=== PATIENT | male | born 1985 | race African-American/Black ===

== ENCOUNTER 2017-12-21 08:01 | Emergency (ER) | payer BC ==
[~2017-12-21] VITALS: Ht 182.9 cm; Wt 102.0 kg
[~2017-12-21 08:01] MED LIST: (None)3.5 GM OP; BACTRIM DS1 TAB PO; BYDUREON2 MG IJ; GENTAMICIN15 ML/BTL OS; METFORMIN500 M2 PO
[2017-12-21 08:49] VITALS: BP 140/86
== END 2017-12-21 08:55 | disposition home or self-care (01) | DRG 125 ==
LOC: ED 08:01
DX: H52.532 Spasm of accommodation, left eye (principal); E11.9 Type 2 diabetes mellitus without complications; Z79.84 Long term (current) use of oral hypoglycemic drugs

== ENCOUNTER 2018-07-06 02:40 | Emergency (ER) | payer BC ==
[~2018-07-06] VITALS: Ht 182.9 cm; Wt 104.0 kg
[2018-07-06] MEDS ORDERED: LANTUS100 UNIT/M (02:59)
[2018-07-06] MEDS ORDERED: KEFLEX500 MG PO (03:15)
[2018-07-06] MEDS ORDERED: PERCOCET 5/325M1 TAB PO (03:15)
[2018-07-06] MEDS ORDERED: BACTRIM DS1 TAB PO (03:15)
[2018-07-06 03:35] VITALS: BP 118/80
== END 2018-07-06 03:35 | disposition home or self-care (01) | DRG 603 ==
LOC: ED 02:40
DX: L02.211 Cutaneous abscess of abdominal wall (principal); E11.9 Type 2 diabetes mellitus without complications

== ENCOUNTER 2018-07-09 09:03 | Emergency (ER) | payer BC ==
[~2018-07-09] VITALS: Ht 182.9 cm; Wt 100.0 kg
[~2018-07-09 09:03] MED LIST changes: +KEFLEX500 MG PO; +LANTUS100 UNIT/M SC; +PERCOCET 5/325M1 TAB PO
[2018-07-09 10:24] LABS: HEMATOCRIT 40.3 % (39.0-50.0); HEMOGLOBIN 14.3 g/dl (14.0-18.0); IMMATURE GRANULOCYTES 0.9 % (0.0-5.0); MEAN CELL VOLUME 76.9 fL CALC (80.0-100.0); MEAN CORPUSCULAR HGB 27.3 pG CALC (26.0-32.0); MEAN CORPUSCULAR HGB CONC 35.5 g/L CALC (32.0-36.0); NEUT# 4.55 thou/uL (1.82-7.42); RED BLOOD COUNT 5.24 mill/uL (4.70-6.10); RED CELL DISTRI WIDTH 11.9 % (11.5-15.5)
[2018-07-09 10:49] LABS: BUN 15 mg/dL (9-20); BUN/CREATININE RATIO 17 (12-20 (CALC)); CARBON DIOXIDE 30 mmol/l (22-30); CREATININE 0.9 mg/dL (0.7-1.3); GFR > 60 ML/MIN (>=60 (CALC)); GFR FOR AFR.AMER. > 60 ML/MIN (>=60 (CALC)); POTASSIUM 4.3 mmol/l (3.5-5.1)
[2018-07-09 10:51] LABS: ANION GAP 16 (6-22 (CALC)); CHLORIDE 92 mmol/l (95-108); SODIUM 134 mmol/l (137-146)
[2018-07-09] MEDS ORDERED: CLEOCIN300 MG PO (11:33)
[2018-07-09 11:55] VITALS: BP 126/81
== END 2018-07-09 11:55 | disposition home or self-care (01) | DRG 603 ==
LOC: ED 09:03
PROVIDERS: Family Medicine
DX: L03.311 Cellulitis of abdominal wall (principal); E11.65 Type 2 diabetes mellitus with hyperglycemia; Z79.4 Long term (current) use of insulin

== ENCOUNTER 2019-08-10 18:10 | Emergency (ER) | payer SELFPAY ==
[~2019-08-10] VITALS: Ht 182.9 cm; Wt 111.2 kg
[~2019-08-10 18:10] MED LIST changes: +CLEOCIN300 MG PO
[2019-08-10] MEDS ORDERED: HUMALOG100 MG/ML (18:18)
[2019-08-10] MEDS ORDERED: TRESIBA FL100 UNIT/M (18:18)
[2019-08-10 18:59] LABS: URINE BILIRUBIN - DIPSTICK NEGATIVE (NEGATIVE); URINE BLOOD DIPSTICK NEGATIVE (NEGATIVE); URINE COLOR YELLOW; URINE GLUCOSE - DIPSTICK >=1000 mg/dL (NEGATIVE); URINE KETONE NEGATIVE (NEGATIVE); URINE LEUK ESTERASE NEGATIVE (Negative); URINE NITRITE - DIPSTICK NEGATIVE (Negative); URINE PH 5.5 (4.5-8.0); URINE PROTEIN - DIPSTICK NEGATIVE (NEG-TRACE); URINE SPECIFIC GRAVITY 1.025; URINE UROBILINOGEN - DIPSTICK 0.2 E.U./dL (0.2)
[2019-08-10 19:00] LABS: URINE CLARITY CLEAR
[2019-08-10 19:40] VITALS: BP 139/84
== END 2019-08-10 19:40 | disposition home or self-care (01) | DRG 552 ==
LOC: ED 18:10
PROVIDERS: Emergency Medicine
DX: M54.5 Low back pain (principal); R81 Glycosuria; E11.9 Type 2 diabetes mellitus without complications; Z79.4 Long term (current) use of insulin

== ENCOUNTER 2020-03-22 | Emergency (ER) | payer BC ==
[~2020-03-22] MED LIST changes: +HUMALOG100 MG/ML; +TRESIBA FL100 UNIT/M
[2020-03-22] MEDS ORDERED: GENTAMICIN0.3 % OS (20:47)
== END 2020-03-22 20:57 | disposition home or self-care (01) | DRG 125 ==
DX: H10.9 Unspecified conjunctivitis (principal); E11.9 Type 2 diabetes mellitus without complications; Z79.4 Long term (current) use of insulin

== ENCOUNTER 2020-05-13 11:25 | Emergency (ER) | payer BC ==
[~2020-05-13] VITALS: Ht 175.3 cm; Wt 75.0 kg
[~2020-05-13 11:25] MED LIST changes: +GENTAMICIN0.3 % OS
[2020-05-13 14:08] VITALS: BP 122/80
--- NOTE | 2020-05-16 18:31 | NUR ---
Notified patient of postive Covid results. Advised patient to quarantine until contacted by the [facility] with further instructions. Patient denies fever or SOB. Advised patient to return to ED with difficulty breathing or other urgent needs. Patient verbalized understanding.
== END 2020-05-13 14:08 | disposition home or self-care (01) | DRG 179 ==
LOC: ED 11:25
DX: U07.1 COVID-19 (principal); E11.9 Type 2 diabetes mellitus without complications; Z79.4 Long term (current) use of insulin

== ENCOUNTER 2020-05-27 12:46 | Emergency (ER) | payer BC | END 2020-05-27 12:52 | disposition left against medical advice (07) | DRG 951 | LOC: ED 12:46 → LWOBS 12:51 | DX: Z53.21 Procedure and treatment not carried out due to patient leaving prior to being seen by health care provider (principal) ==

== ENCOUNTER 2020-05-30 17:07 | Observation (INO) | payer BC ==
[~2020-05-30] VITALS: Ht 152.4 cm; Wt 99.1 kg
--- NOTE | 2020-05-30 17:10 | NUR ---
PT TO ROOM VIA WC
--- NOTE | 2020-05-30 18:10 | NUR ---
RESTING ON STRETCHER WITH HOB ELEVATED. RESPS EVEN AND UNLABORED. #20 LAC INFUSING WITHOUT DIFFICULTY. AT BEDSIDE. DENIES NEEDS AT THIS TIME.
[2020-05-30 18:27] LABS: HEMATOCRIT 44.5 % (39.0-50.0); HEMOGLOBIN 14.9 g/dl (14.0-18.0); IMMATURE GRANULOCYTES 0.5 % (0.0-5.0); MEAN CELL VOLUME 77.7 fL CALC (80.0-100.0); MEAN CORPUSCULAR HGB CONC 33.5 g/dL CAL (32.0-36.0); NEUT# 6.19 thou/uL (1.82-7.42); RED BLOOD COUNT 5.73 mill/uL (4.70-6.10)
[2020-05-30 18:41] LABS: BUN 23 mg/dL (9-20); CARBON DIOXIDE 27 mmol/l (22-30); CHLORIDE 84 mmol/l (95-108); LIPASE 60 u/l (23-300); SGOT/AST 39 u/l (17-59); TOTAL PROTEIN 9.1 g/dL (6.3-8.2)
[2020-05-30 18:42] LABS: URINE BILIRUBIN - DIPSTICK NEGATIVE (NEGATIVE); URINE BLOOD DIPSTICK NEGATIVE (NEGATIVE); URINE COLOR YELLOW; URINE GLUCOSE - DIPSTICK >=1000 mg/dL (NEGATIVE); URINE KETONE 15 mg/dL (NEGATIVE); URINE LEUK ESTERASE NEGATIVE (NEGATIVE); URINE NITRITE - DIPSTICK NEGATIVE (Negative); URINE PROTEIN - DIPSTICK TRACE mg/dL (NEG-TRACE); URINE SPECIFIC GRAVITY 1.015; URINE UROBILINOGEN - DIPSTICK 0.2 E.U./dL (0.2)
--- NOTE | 2020-05-30 18:50 | NUR ---
REPORT GIVEN TO BRINA VALDEZ.
[2020-05-30 18:51] LABS: ALBUMIN 5.2 g/dL (3.2-5.0); ALKALINE PHOSPHATASE 120 u/l (38-126); ANION GAP 21 (6-22 (CALC)); BILIRUBIN, TOTAL 1.3 mg/dL (0.0-1.4); BUN/CREATININE RATIO 12 (12-20 (CALC)); CREATININE 1.9 mg/dL (0.7-1.3); GFR 41 ML/MIN (>=60 (CALC)); GFR FOR AFR.AMER. 49 ML/MIN (>=60 (CALC)); POTASSIUM 5.8 mmol/l (3.5-5.1); SODIUM 126 mmol/l (137-146)
--- NOTE | 2020-05-30 19:00 | NUR ---
RESTING COMFORTABLY AWAITING DISPO.
[2020-05-30 19:15] LABS: TSH, 3RD GENERATION 1.11 uIU/mL (0.47 - 4.68)
--- NOTE | 2020-05-30 19:40 | NUR ---
Admission Note Report Given to: JOSÉ MIGUEL JUAREZ Transported by: Wheelchair X Stretcher Transported with: X Nurse Transporter X Patent IV O2 X Director Web Location: X ICU MS2 TRANSPORT TO ICU DELAYED PENDING ROOM CLEANING.
--- NOTE | 2020-05-30 20:35 | NUR ---
SLEEPING. NAD. AWAITING ROOM READY.
[2020-05-30 21:05] LABS: ANION GAP 14 (6-22 (CALC)); BUN 21 mg/dL (9-20); BUN/CREATININE RATIO 15 (12-20 (CALC)); CARBON DIOXIDE 30 mmol/l (22-30); CHLORIDE 91 mmol/l (95-108); CREATININE 1.4 mg/dL (0.7-1.3); GFR 58 ML/MIN (>=60 (CALC)); GFR FOR AFR.AMER. > 60 ML/MIN (>=60 (CALC)); POTASSIUM 4.2 mmol/l (3.5-5.1); SODIUM 131 mmol/l (137-146)
--- NOTE | 2020-05-30 21:30 | NUR ---
SLEEPING. AWAITING READY BED.
--- NOTE | 2020-05-30 21:50 | NUR ---
TRANSPORTED TO ICU 2.
--- NOTE | 2020-05-30 21:51 | NUR ---
34 yr old black male admitted to icu2 per stretcher from er. ambulated self to bed. cardiac nurse practitioner shows sinus rhythm hr 89. #20 lac saline lock. history obtained per pt & er record. oriented to room. pt admits to "sliding scale on both insulins." fall & air/contact initiated.
[2020-05-30 23:26] VITALS: BP 115/70
[2020-05-30 23:39] VITALS: BP 109/73
[2020-05-30 23:54] VITALS: BP 104/62
[2020-05-31] VITALS (20 sets, daily range): BP systolic 96–118; BP diastolic 53–71
--- NOTE | 2020-05-31 00:01 | NUR ---
eyes closed. no distress. repair manager shows sinus rhythm hr 90.
--- NOTE | 2020-05-31 02:00 | NUR ---
resting quietly. resps even & unlabored. no apparent distress.
--- NOTE | 2020-05-31 04:00 | NUR ---
eyes closed. no distress. night monitor shows sinus rhythm hr 84.
--- NOTE | 2020-05-31 05:00 | NUR ---
blood drawn & sent to lab.
[2020-05-31 06:07] LABS: HEMATOCRIT 39.6 % (39.0-50.0); IMMATURE GRANULOCYTES 0.2 % (0.0-5.0); MEAN CELL VOLUME 79.2 fL CALC (80.0-100.0); MEAN CORPUSCULAR HGB 25.6 pG CALC (26.0-32.0); MEAN CORPUSCULAR HGB CONC 32.3 g/dL CAL (32.0-36.0); NEUT# 3.33 thou/uL (1.82-7.42); RED CELL DISTRI WIDTH 12.3 % (11.5-15.5)
[2020-05-31 06:11] LABS: HEMOGLOBIN 12.8 g/dl (14.0-18.0)
[2020-05-31 06:22] LABS: ALKALINE PHOSPHATASE 82 u/l (38-126); ANION GAP 10 (6-22 (CALC)); BILIRUBIN, TOTAL 1.2 mg/dL (0.0-1.4); BUN 18 mg/dL (9-20); BUN/CREATININE RATIO 20 (12-20 (CALC)); C-REACTIVE PROTEIN < 0.5 mg/dL (0-0.9); CARBON DIOXIDE 31 mmol/l (22-30); CHLORIDE 95 mmol/l (95-108); CREATININE 0.9 mg/dL (0.7-1.3); GFR > 60 ML/MIN (>=60 (CALC)); GFR FOR AFR.AMER. > 60 ML/MIN (>=60 (CALC)); POTASSIUM 4.2 mmol/l (3.5-5.1); SGOT/AST 34 u/l (17-59); SODIUM 131 mmol/l (137-146)
[2020-05-31 06:23] LABS: ALBUMIN 3.9 g/dL (3.2-5.0); TOTAL PROTEIN 6.8 g/dL (6.3-8.2)
--- NOTE | 2020-05-31 06:45 | NUR ---
RECIEVED REPORT MICHAEL JUAREZ. ASSUMED PT CARE.
--- NOTE | 2020-05-31 07:30 | NUR ---
PT A&OX3, ABLE TO MAKE NEEDS KNOWN. SR ON TELEMETRY, HR 72. PT DENIES CP, SOB OR DISTRESS AT THIS TIME. RESPIRATIONS EVEN/UNLABORED. SA02@98%. ACCUCHECK 295, WITH S/S COVERAGE. ABDOMEN SOFT, NON-TENDER. LBM 7-9-20. 20G LAC INFUSING NS@150ML/HR. CALL LIGHT IN REACH. WILL MONITOR.
--- NOTE | 2020-05-31 09:30 | NUR ---
DR. BARRERA AT BEDSIDE FOR ASSESSMENT AND TO DISCUSS PLAN OF CARE, NEW ORDERS RECIEVED. CALL LIGHT IN REACH. WILL MONITOR.
--- NOTE | 2020-05-31 10:00 | NUR ---
PT CALLED, VERIFIED WITH PT TO OBTAIN PERMISSION TO GIVE INFORMATION. PERMISSION GRANTED. UPDATE GIVEN. CALL LIGHT IN REACH. WILL MONITOR.
--- NOTE | 2020-05-31 12:26 | NUR ---
SISTER JARED PHONED WITH CODE FOR UPDATE. UPDATE PROVIDED. PT CALLED FAMILY STATED THAT HE WAS SCARED AND WAS DYING. EXPLAINED NA REASSURED FAMILY THAT AT THIS TIME PT IS STABLE AND PATIENT IS REQUIRING NO O2. AT THIS TIME PLAN IS FOR PATIENT TO BE DISCHARGE TODAY. SISTER UPSET WITH PATIENT AND WILL REASSURE PATIENT THAT HE IS OK AND WILL ENCOURAGE HIM TO MANAGE DIABETES BETTER
[2020-05-31] MEDS ORDERED: TRESIBA FL100 UNIT/M SC (13:28)
--- NOTE | 2020-05-31 13:40 | NUR ---
PT REQUESTED SOCKS, REQUEST GRANTED.
--- NOTE | 2020-05-31 14:19 | NUR ---
PT RESTING IN BED, TALKING ON PERSONAL CELL PHONE. NO DISTRESS NOTED. CALL LIGHT IN REACH. WILL MONITOR.
--- NOTE | 2020-05-31 16:04 | NUR ---
IV site discontinued, cath intact. No edema , no redness, voices no discomfort.
[2020-05-31] MEDS ORDERED: ZITHROMAX250 MG PO (17:55)
[2020-05-31] MEDS ORDERED: ROBITUSSIN200 MG/10 PO (17:57)
--- NOTE | 2020-05-31 18:30 | NUR ---
DISCHARGE INSTRUCTIONS REVIEWED WITH PATIENT. PATIENT VERBALIZED UNDERSTANDING. WORK NOTE PROVIDED.
--- NOTE | 2020-05-31 18:35 | NUR ---
Discharge instructions given. Patient verbalizes understanding of same. Discharged in stable condition via Wheelchair to Home with family. All belongings sent with pt.
== END 2020-05-31 18:35 | disposition home or self-care (01) | DRG 178 ==
LOC: ED 17:07 → ED-I 17:22 → ED 19:14 → ICU 19:15
PROVIDERS: Family Medicine; Internal Medicine; ADMIT Internal Medicine; ATTEND Internal Medicine
DX: U07.1 COVID-19 (principal); N17.9 Acute kidney failure, unspecified; E87.2 Acidosis; E86.0 Dehydration; E11.65 Type 2 diabetes mellitus with hyperglycemia; Z79.4 Long term (current) use of insulin

== ENCOUNTER 2021-11-28 12:07 | Emergency (ER) | payer SELFPAY ==
[~2021-11-28 12:07] MED LIST changes: +ROBITUSSIN200 MG/10 PO; +TRESIBA FL100 UNIT/M SC; +ZITHROMAX250 MG PO
== END 2021-11-28 13:10 | disposition left against medical advice (07) | DRG 951 ==
LOC: ED 12:07
DX: Z91.19 Patient's noncompliance with other medical treatment and regimen (principal)

== ENCOUNTER 2021-11-29 23:47 | Emergency (ER) | payer SELFPAY ==
[~2021-11-29] VITALS: Ht 177.8 cm; Wt 111.0 kg
[2021-11-30] MEDS ORDERED: ZPAK PO (01:22)
[2021-11-30] MEDS ORDERED: CLARITIN10 M2 PO (01:24)
[2021-11-30 01:25] VITALS: BP 126/81
== END 2021-11-30 01:30 | disposition home or self-care (01) | DRG 179 ==
LOC: ED 23:47
DX: U07.1 COVID-19 (principal); E11.9 Type 2 diabetes mellitus without complications; Z79.4 Long term (current) use of insulin

== ENCOUNTER 2021-12-06 12:49 | Emergency (ER) | payer SELFPAY ==
[~2021-12-06] VITALS: Ht 177.8 cm; Wt 100.0 kg
[~2021-12-06 12:49] MED LIST changes: +CLARITIN10 M2 PO; +ZPAK PO
[2021-12-06] MEDS ORDERED: TESSALON PERLE100 MG PO ×2 (14:48→15:12)
[2021-12-06 14:55] VITALS: BP 139/68
== END 2021-12-06 14:55 | disposition home or self-care (01) | DRG 179 ==
LOC: ED 12:49
DX: U07.1 COVID-19 (principal); E11.9 Type 2 diabetes mellitus without complications; Z79.4 Long term (current) use of insulin

== ENCOUNTER 2022-03-14 04:10 | Emergency (ER) | payer SELFPAY ==
[~2022-03-14] VITALS: Ht 177.8 cm; Wt 103.0 kg
[~2022-03-14 04:10] MED LIST changes: +TESSALON PERLE100 MG PO
[2022-03-14 04:18] VITALS: BP 132/95
[2022-03-14 04:31] VITALS: BP 132/91
== END 2022-03-14 04:43 | disposition home or self-care (01) | DRG 605 ==
LOC: ED 04:10
DX: S91.202A Unspecified open wound of left great toe with damage to nail, initial encounter (principal); E11.9 Type 2 diabetes mellitus without complications; X58.XXXA Exposure to other specified factors, initial encounter; Z79.4 Long term (current) use of insulin

== ENCOUNTER 2022-10-14 23:17 | Emergency (ER) | payer SELFPAY ==
[~2022-10-14] VITALS: Ht 177.8 cm; Wt 106.0 kg
[2022-10-15 00:01] VITALS: BP 128/91
== END 2022-10-15 00:10 | disposition left against medical advice (07) | DRG 730 ==
LOC: ED 23:17
DX: S31.31XA Laceration without foreign body of scrotum and testes, initial encounter (principal); W26.8XXA Contact with other sharp object(s), not elsewhere classified, initial encounter; Z53.29 Procedure and treatment not carried out because of patient's decision for other reasons

== ENCOUNTER 2023-08-25 17:44 | Emergency (ER) | payer SELFPAY ==
[~2023-08-25] VITALS: Ht 177.8 cm; Wt 108.8 kg
[2023-08-25 18:44] VITALS: BP 178/117
== END 2023-08-25 18:52 | disposition home or self-care (01) | DRG 607 ==
LOC: ED 17:44
PROC: 0H9NXZZ Drainage of Left Foot Skin, External Approach (ICD-10-PCS; principal; 2023-08-25)
DX: S90.522A Blister (nonthermal), left ankle, initial encounter (principal); E11.40 Type 2 diabetes mellitus with diabetic neuropathy, unspecified; Z79.4 Long term (current) use of insulin; X58.XXXA Exposure to other specified factors, initial encounter

== ENCOUNTER 2024-07-19 13:42 | Emergency (ER) | payer OTHER ==
[~2024-07-19] VITALS: Ht 177.8 cm; Wt 108.0 kg
[2024-07-19 13:49] VITALS: BP 162/102
[2024-07-19] MEDS ORDERED: MEDDOSEPAK PO (14:02)
[2024-07-19] MEDS ORDERED: KENALOG15 GM/TUBE TD (14:02)
[2024-07-19 14:14] VITALS: BP 178/120
[2024-07-19 14:17] VITALS: BP 178/120
== END 2024-07-19 14:15 | disposition home or self-care (01) | DRG 607 ==
LOC: ED 13:42
DX: L25.9 Unspecified contact dermatitis, unspecified cause (principal); T25.222A Burn of second degree of left foot, initial encounter; X11.8XXA Contact with other hot tap-water, initial encounter; E11.9 Type 2 diabetes mellitus without complications; E11.40 Type 2 diabetes mellitus with diabetic neuropathy, unspecified; Z79.4 Long term (current) use of insulin

== ENCOUNTER 2024-08-07 20:26 | Emergency (ER) | payer OTHER ==
[~2024-08-07] VITALS: Ht 177.8 cm; Wt 109.0 kg
[~2024-08-07 20:26] MED LIST changes: +KENALOG15 GM/TUBE TD; +MEDDOSEPAK PO
[2024-08-07] MEDS ORDERED: ACETAMINOPHEN 500 MG TAB PO ONE (21:00)
[2024-08-07] MEDS ORDERED: KETOROLAC TROMETHAMINE 30 MG/ML SDV IV ONE (21:00)
[2024-08-07] MEDS ORDERED: SODIUM CHLORIDE 0.9% 1,000 ML IV ONE (21:00)
[2024-08-07] MEDS ORDERED: IPRATROPIUM-Albuterol 0.5MG-2.5MG/3 ML NEB ONE (21:00)
[2024-08-07 21:21] LABS: BASO% 0.2 % (0-3); EOS% 1.2 % (0-8); HEMATOCRIT 39.1 % (39.0-50.0); IMMATURE GRANULOCYTES 0.2 % (0.0-5.0); LYMPH% 4.7 % (15-41); MEAN CELL VOLUME 79.3 fL CALC (80.0-100.0); MEAN CORPUSCULAR HGB 26.4 pG CALC (26.0-32.0); MEAN CORPUSCULAR HGB CONC 33.2 g/dL CAL (32.0-36.0); MONO% 5.6 % (2-13); NEUT# 5.02 thou/uL (1.82-7.42); NEUT% 88.1 % (42-76); RED BLOOD COUNT 4.93 mill/uL (4.70-6.10); RED CELL DISTRI WIDTH 12.4 % (11.5-15.5)
[2024-08-07 21:36] LABS: ALBUMIN 3.7 g/dL (3.2-5.0); BILIRUBIN, TOTAL 0.6 mg/dL (0.2-1.3); CREATININE 1.1 mg/dL (0.7-1.3); POTASSIUM 4.3 mmol/l (3.5-5.1); TOTAL PROTEIN 6.9 g/dL (6.3-8.2)
[2024-08-07] MEDS ORDERED: INSULIN REGULAR (HUMAN) 100 UNIT/ML INJ IV ONE (21:45)
[2024-08-07 21:55] VITALS: BP 137/88
[2024-08-07] MEDS ORDERED: TAM75CAP PO (22:22)
[2024-08-07] MEDS ORDERED: OSELTAMIVIR PHOSPHATE 75 MG/TAB CAP PO ONE (22:25)
[2024-08-07 22:38] VITALS: BP 137/88
== END 2024-08-07 22:38 | disposition home or self-care (01) | DRG 195 ==
LOC: ED 20:26
PROVIDERS: Family Medicine
DX: J10.1 Influenza due to other identified influenza virus with other respiratory manifestations (principal); E11.40 Type 2 diabetes mellitus with diabetic neuropathy, unspecified; Z79.4 Long term (current) use of insulin; Z20.822 Contact with and (suspected) exposure to COVID-19